=== PATIENT | female | born 1980 | race Caucasian/White ===

== ENCOUNTER 2025-02-04 19:14 | Emergency (ER) | payer OTHER, SELFPAY ==
[2025-02-04 19:15] VITALS: BP 146/90
[2025-02-04 19:57] VITALS: BP 137/89
[2025-02-04 20:02] VITALS: BMI 23.7
[2025-02-04 20:50] LABS: Hematocrit 38.1 % (37.0-47.0); Hemoglobin 12.9 g/dL (12.0-16.0); Mean Corp Hgb Conc. 33.9 g/dL (33.0-37.0); Mean Corpuscular Volume 86.2 fL (81.0-99.0); Nucleated Red Blood Cells % 0 %; Platelet Count 242 10^3/uL (130-400); Red Cell Dist. Width 12.1 % (11.5-14.5)
[2025-02-04 21:14] LABS: ALT (SGPT) 14 U/L (0-35); AST (SGOT) 20 U/L (14-36); Albumin 4.1 g/dl (3.5-5.0); Alkaline Phosphatase 52 U/L (38-126); Blood Urea Nitrogen 14 mg/dl (7-17); Calcium 9.0 mg/dl (8.4-10.2); Carbon Dioxide 26 mmol/L (22-30); Chloride 108 mmol/L (98-107); Estimated Creatinine Clearance 99 ml/min; Glucose 93 mg/dl (70-99); Potassium 4.1 mmol/L (3.5-5.1); Sodium 139 mmol/L (135-145); Total Protein 6.6 g/dl (6.3-8.2); eGFR > 60.00
[2025-02-04] MEDS: AUGMENTIN 875 MG/125 MG 1 TABLET PO (21:25)
--- NOTE | 2025-02-04 22:55 | ED.SKININJ ---
HPI-Injury
General
Chief Complaint: Eye Problems
Source: patient
Exam Limitations: none
Time Seen by Provider: 02/04/25 20:57
Nursing documentation reviewed up to this point in time: agreed with
History of Present Illness-Injury
Is this injury a work related problem?: No
Is pt an associate of [facility]?: No
Initial Injury comments:
Patient to ED [facility] complaint of pain redness and swelling to left upper eyelid She was seen at a few days ago and placed on antibiotic drops which she states have not helped, She is concnerend for periorbital cellulitis. Denies fever/chills.
Brought self to ED for eval.
Past History
Past History
ED Past Medical History: Asthma, Cancer (thyroid), Hypothyroidism (after thyroidectomy), Psychiatric (AIDAN/O) and Other (Hemagioma)
ED Past Surgical History: Other (thyroidectomy 2017)
Social History
Tobacco: Non-smoker
Alcohol: None
Drug: None
Personal:
Living: with family
Employment: Employed
Family History
Family History: Other ('Vein clusters' on brain that had to be removed)
Review of Systems
Review of Systems
Allergies reviewed?: Yes
All Other Systems: ROS reviewed and negative except as documented in HPI and ROS
Constitutional: Reports no symptoms
EENT: Reports other (pain rednss swelling to left upper eyelid. )
Respiratory: Reports no symptoms
Cardiac: Reports no symptoms
ABD/GI: Reports no symptoms
: Reports no symptoms
Musculoskeletal: Reports no symptoms
Skin: Reports other (pain redness and swelling to left upper eyelid)
Neurological: Reports no symptoms
Psychiatric: Reports no symptoms
Phy Exam
General Physical Exam
General Presentation: well appearing and mild distress
General age: appears stated age
General Skin: warm and dry
General Habitus: normal
General Mental: alert
Eye Exam
Eye Exam: PERRL, EOMI (nonpainful movement of eye), conjunctiva normal, globe normal and other (Hordeolum left upper eyelid. Lid everted, no evidence of FB)
Eye Exam General: PERRL: bilateral and EOM intact: bilateral
Conjunctival Changes: bilateral: none
Eyelid Exam: sty-hordeolum: Left (left upper lid)
Type of Exam: simple and fluorescein (no evidence of corneal abrasion)
Neurological Exam
Neurological Exam: alert, oriented x3, CN II-XII intact, no motor deficits, no sensory deficits and speech normal
Musculoskeletal Exam
Musculoskeletal Exam: full ROM
Skin Exam
Skin Exam: normal color, warm/dry and no rash
Psychiatric Exam
Psychiatric Exam: normal mood/affect
Course
Orders/Labs/Results
Orders:
Orders
02/04/25 20:41
Complete Blood Count/With Diff Urgent
Comprehensive Metabolic Panel Urgent
02/04/25 21:17
Amoxicillin 875 mg/Clav 125 mg [Augmentin 875 mg/125 mg] 1 tablet PO NOW STA
Abnormal Lab Results
02/04/25
20:41
MPV 10.7 H fL
(7.4-10.4)
Absolute Monos (auto) 0.7 H 10^3/uL
(0.1-0.6)
Eosinophils % 9.4 H %
(0-6)
Chloride 108 H mmol/L
(98-107)
02/04/25 20:41
02/04/25 20:41
Vital Signs
Initial and Last Documented VS:
Initial Vital Signs
Temp Pulse Resp BP Pulse Ox
98.2 F 92 18 146/90 97
02/04/25 19:15 02/04/25 19:15 02/04/25 19:15 02/04/25 19:15 02/04/25 19:15
Last Documented Vital Signs
Temp Pulse Resp BP Pulse Ox
99.1 F 98 20 137/89 98
02/04/25 19:57 02/04/25 19:57 02/04/25 19:57 02/04/25 19:57 02/04/25 19:57
*Pulse Oximetry
SaO2: 98
Oxygen Mode of Delivery: Room air
Patient hypoxic: no
*Critical Care Note
Total Time (30-74mins, 75-104mins- exclusive of procedures): Not Applicable
Update Note
Update Note:
Patient to ED with complaint of thrasher redness and swelling to left upper eyelid. +left upper lid styet. Redness and swelling localized to left upper eyelid. EOMI, no pain with movement. No concern for periorbital cellulitis. Recommend warm
compresses 4-5x daily. Will place on augmentin, follow up with ophthalmology.
ED Attending Note
-
Portions of this chart may have been created with voice recognition software.� Occasional wrong word or��sound alike� substitutions may have occurred due to the inherent limitations of voice recognition software.
Discharge Plan
Departure
Patient Disposition: Home (Routine Discharge)
Date of Disposition: 02/04/25
Time of Disposition: 21:18
Patient with high blood pressure during this ER visit?: No
Condition: Good
Covid-19: Not Applicable
Discharge Problem:
Hordeolum externum (stye)
Instructions: Stye
Prescriptions:
New
amoxicillin-pot clavulanate 875-125 mg tablet
1 tab PO BID Qty: 14 0RF
No Action
levothyroxine 100 MCG tablet
100 mcg PO DAILY
sertraline 50 MG tablet
100 mg PO DAILY@1700
multivitamin with folic acid [Tab-A-Dario] 1 TABLET tablet
1 tab PO DAILY
ferrous sulfate [FeroSul] 325 MG tablet
325 mg PO HS 0RF
levetiracetam [Keppra XR] 750 mg Tablet Extended Release 24 Hr
750 mg PO DAILY
Rx Instructions:
1200 noon
Keppra XR
1,000 mg PO AMHS
Referrals:
ARSEN MONTANO JR [Other]
Nicolasa Jansen MD [Active, Ophthalmology] - Call in 1-3 days for appt
Activity Restrictions/Additional Instructions:
Apply warm compresses 15-20 minutes at a time, 4-5 times daily. Return to the emergency department immediately for any changes in/worsening of your symptoms.
Interventions
Interventions:
*Risk Screen - Suicide Last Done: 02/04/25 19:15
*General Assessment Last Done: 02/04/25 19:15
*Neglect/Abuse Screening Last Done: 02/04/25 19:57
*ED- Fall Risk Assessment Last Done: 02/04/25 21:34
*ED COVID-19 Vaccine History Last Done: 02/04/25 19:57
*Nursing Disposition Last Done: 02/04/25 21:34
Discharge Date and Time
Discharge Date/Time: 02/04/25 21:35
Print Language: GRENADIAN
== END 2025-02-04 21:35 | disposition home or self-care (01) ==
LOC: EMR 19:14
PROVIDERS: Emergency Medicine; EMERGENCY PHYSICIAN Emergency Medicine
DX: H00.014 Hordeolum externum left upper eyelid (principal); J45.909 Unspecified asthma, uncomplicated
CPT/HCPCS: 99283; 80053; 85025